=== PATIENT | male | born 1940 | race Caucasian/White ===

== ENCOUNTER 2018-06-27 21:25 | Emergency (ER) | payer MEDICARE, OTHER ==
[~2018-06-27] VITALS: Ht 182.8 cm; Wt 117.9 kg
--- NOTE | ~2018-06-27 | EKG ---
[place], [place] ELECTROCARDIOGRAM REPORT NAME: LUIS EDUARDO CONNER UNIT #: [id number] ROOM: DOCTOR: LUIS DRAFT REPORT BIRTHDATE: [birth year] [facility] Test Date: 2018-06-27 Test Time: 21:50:13 Pat Name: LUIS EDUARDO CONNER Department: Room: [facility] Gender: M Automotive Maintenance Technician: MATTHIEU : 1940 Requested By: TRAV GARCIA Order Number: [id number] Reading MD: Victor Hugo Gibbs MD Measurements Intervals [place] Rate: 111 P: 11 TX: 123 QRS: 29 QRSD: 111 T: 67 QT: 362 QTc: 492 Interpretive Statements Sinus tachycardia Nonspecific repol abnormality, lateral leads Electronically Signed On 06-28-2018 6:46:27 PST by Victor Hugo Gibbs MD CM:EKGRPT:ELECTROCARDIOGRAM REPORT [id number] TRAV VELAZQUEZ DRAFT REPORT TRAV GARCIA DO
[2018-06-27 21:33] VITALS: BP 141/76
[2018-06-27] MEDS ORDERED: MAGOX 400400 MG PO (21:39)
[2018-06-27] MEDS ORDERED: NORVASC5 MG PO (21:39)
[2018-06-27] MEDS ORDERED: GLUCOPHAGE850 M1 PO (21:39)
[2018-06-27] MEDS ORDERED: PLAVIX75 M1 PO (21:40)
[2018-06-27] MEDS ORDERED: TOPROL XL25 MG PO (21:42)
[2018-06-27] MEDS ORDERED: VITAMIN D-32000 UNI1 PO (21:43)
[2018-06-27] MEDS ORDERED: VITAMIN C1000 M5 PO (21:43)
[2018-06-27] MEDS ORDERED: ZETIA10 MG PO (21:43)
[2018-06-27] MEDS ORDERED: HUMULIN R500 UNIT/1 SQ (21:45)
--- NOTE | 2018-06-27 21:58 | NUR ---
PT nt SX LEFT NARE. PASSED INTO TRACHEA. SX WHITE AND CLEAR. IMPROVED BREATH SOUND
[2018-06-27 22:03] VITALS: BP 130/41
[2018-06-27 22:19] LABS: BASO % 0.1 % (0.0-1.0); EOS % 0.1 % (1.0-4.0); HEMATOCRIT 32.6 % (42.0-52.0); LYMPH # 0.7 10*3/uL (1.3-4.4); LYMPH % 8.6 % (27.0-41.0); MEAN CELL VOLUME 86.7 fl (80.0-94.0); MEAN CORPUSCULAR HGB 26.6 pg (27.0-31.0); MEAN CORPUSCULAR HGB CONC 30.7 g/dl (33.0-37.0); MEAN PLATELET VOLUME 9.1 fl (9.6-12.3); MONO # 0.5 10*3/uL (0.1-1.0); MONO % 6.3 % (3.0-9.0); NEUT # 6.6 10*3/uL (2.3-7.9); NEUT % 84.3 % (47.0-73.0); RED BLOOD COUNT 3.76 10*6/uL (4.50-5.90); RED CELL DISTRI WIDTH 17.5 % (0-14.5); WHITE BLOOD COUNT 7.8 10*3/uL (4.8-10.8)
[2018-06-27 22:21] LABS: PLATELET COUNT AUTOMATED 509 10*3/uL (130-400)
--- NOTE | 2018-06-27 22:26 | NUR ---
[place] 4.1, NOTIFIED DR GARCIA
[2018-06-27 22:45] LABS: ALBUMIN 2.5 gm/dl (3.1-4.5); ALKALINE PHOSPHATASE 308 U/L (45-117); CHLORIDE 105 mmol/L (98-107); CREATININE 1.16 mg/dL (0.70-1.30); SGOT/AST 87 IU/L (3-35); SGPT/ALT 48 U/L (12-78); SODIUM 138 mmol/L (136-145); TOTAL PROTEIN 6.9 gm/dL (6.4-8.2)
[2018-06-27 22:59] LABS: BUN 48 mg/dl (7-24); TROPONIN I < 0.015 ng/ml (<0.045)
[2018-06-27 23:15] VITALS: BP 86/45
[2018-06-27 23:35] VITALS: BP 88/42
[2018-06-28 00:17] VITALS: BP 94/53
[2018-06-28 00:45] VITALS: BP 95/54
--- NOTE | 2018-06-28 00:48 | NUR ---
CRITICAL TAKEN, LA 8.1, JOSE GUERRERO NOTIFIED.
[2018-06-28 01:00] VITALS: BP 101/44
[2018-06-28 01:17] LABS: LIPASE 152 U/L (73-393)
[2018-06-28 01:30] VITALS: BP 131/63
--- NOTE | 2018-06-28 01:30 | NUR ---
SPOKE WITH SRUTHI IN [facility], MIXED 500MG/10ML OF KETAMINE TO 490ML OF NS, TO MAKE 500MG OF KETAMINE TO 500ML OF SALINE DOSE REC TO START PER [facility] 10 MCG/HOUR (1ML/HR)
[2018-06-28 02:07] LABS: ABG BASE EXCESS -7.9 mmol/L (-2.0-2.0); ABG HCO3 17.5 mmol/l (22-26); ABG O2 SATURATION 94.8 % (95-97); ARTERIAL BLOOD GAS PCO2 37.1 mmHg (35-45); ARTERIAL BLOOD GAS PH 7.294 (7.35-7.45); ARTERIAL BLOOD GAS PO2 80.6 mmHg (80-90)
[2018-06-28 02:15] VITALS: BP 191/87
[2018-06-28 02:31] VITALS: BP 123/59
--- NOTE | 2018-06-28 02:58 | NUR ---
PATIENT LEAVING ED WITH [facility] AT THIS TIME. ALL PERSONAL BELONGINGS SENT WITH PATIENT FAMILY. REPORT GIVEN TO KALEN EM AT [facility].
--- NOTE | 2018-06-28 03:04 | NUR ---
Transfer Out, from the Emergency Department - Stable This patient, LUIS EDUARDO CONNER 77, 36, [id number], [id number], was examined by the Emergency Department physician, TRAV Jones DO and efforts were made to stabilize the patient. The patient's condition is stable. The reason for transfer is need higher level of care . The Emergency physician has made the decision to transfer the patient out. Refer to the ED physician's dictation for the family/back-up physician notified. The attending physician has spoken to the accepting physician at the receiving facility, , [facility] . Refer to the ED physician's dictation. The receiving facility has space and qualified personnel to care for the patient, and has agreed to accept the patient. Proper equipment and trained personnel have been arranged. The mode of transport is air. The agency is [facility]. The Emergency physician has spoken to the transport staff re: patient's condition and needs during transport. Copies of the medical record have been forwarded to the receiving facility, including: - Emergency Department record: - name, address, hospital number, age, next of kin - presenting problem - history of injury, past medical history - treatment, medications & route, fluid type & volume - lab and xray findings, films - physical findings - vitals signs -- prehospital, emergency, pre-transfer - preliminary diagnosis - status/condition - emergency medical services record - consent for transfer - authorization for record release - name of any involed physicians -- responsive or not - name and address of referring physician - name of contact physician at receiving facility - name of accepting physician at receiving facility Nursing report has been given to KALEN EM. Valuables include ALL PERSONAL BELONGINGS WERE SENT WITH FAMILY . and were given to FAMILY. PEDRO TORO
--- NOTE | 2018-06-28 03:39 | NUR ---
0121 KETAMINE 2.5ML GIVEN IV, NS BOLUS GIVEN BAG #[id number] SUCCINYLCHOLINE GIVEN IV 10ML OF 200MG/10ML 0124 PATIENT INTUBATED 7.5 TUBE, 25 AT THE LIP 0132 KETAMINE DRIP WAS STARTED AT 1MG/HR IV. 0140 KETMAMINE INCREASED TO 2MG/HR. 0152 KETAMINE WAS D/C. PROPOFOL BOLUS OF 4ML WAS GIVEN IV BY . 0158 PROPOFOL DRIP WAS STARTED AT 28.5 MCG/MIN 0201 PROPOFOL WAS D/C, B/P 72/31 PT STARTED ON KETAMINE DRIP AT 1ML/HR IV FLUID BOLUS GIVEN BAG #[id number] IV BOLUS NS BAG #3 GIVEN.
--- NOTE | 2018-06-28 03:54 | NUR ---
0236 PT BGL 245 PER [facility]
== END 2018-06-28 04:33 | disposition short-term general hospital (02) ==
LOC: ED 21:25 → EDHOLD 23:34 → ED 23:34
PROVIDERS: Emergency Medicine
DX: A41.9 Sepsis, unspecified organism (principal); J69.0 Pneumonitis due to inhalation of food and vomit; R65.20 Severe sepsis without septic shock; Z79.84 Long term (current) use of oral hypoglycemic drugs; Z79.899 Other long term (current) drug therapy